=== PATIENT | female | born 1945 | race Caucasian/White ===

== ENCOUNTER 2018-11-20 13:47 | Inpatient (IN) | payer MEDICARE, OTHER ==
[~2018-11-20] VITALS: Ht 152.4 cm; Wt 71.0 kg
[~2018-11-20 13:47] MED LIST: ACYC-202 PO; AMLO10TA4 PO; ASPI-611 PO; CHOL10002 PO; CLOP75TA4 PO; CYCL-1 PO; FENO145T38 PO; GABA300C PO; HYDR-4353 PO; METO50TA17 PO; NITR0.4T51 SL; OMEP20TA23 PO; PRAV40TA PO; TRAZ-251 PO; VENL150C2 PO; VENL37.55 PO
[2018-11-20 14:33] LABS: BASOPHILS # (AUTO) 0.1 X10'3 (0-0.2); BASOPHILS % (AUTO) 1.2 % (0-1); EOSINOPHILS # (AUTO) 0.1 X10'3 (0-0.9); EOSINOPHILS % (AUTO) 1.1 % (0-6); HEMATOCRIT 38.1 % (35.0-45.0); HEMOGLOBIN 12.6 g/dl (12.0-16.0); LYMPHOCYTES # (AUTO) 2.4 X10'3 (1.1-4.8); LYMPHOCYTES % (AUTO) 23.3 % (21-51); MEAN CORPUSCULAR HEMOGLOBIN 28.3 PG (27.0-31.0); MEAN CORPUSCULAR HGB CONC 33.1 g/dL (33.0-36.5); MEAN CORPUSCULAR VOLUME 85.5 FL (78-98); MEAN PLATELET VOLUME 7.7 FL (7.4-10.4); MONOCYTES # (AUTO) 0.5 X10'3 (0-0.9); MONOCYTES % (AUTO) 5.1 % (2-12); NEUTROPHILS # (AUTO) 7.2 X10'3 (1.8-7.7); NEUTROPHILS % (AUTO) 69.3 % (42-75); PLATELET COUNT 315 X10'3 (140-440); RED BLOOD COUNT 4.46 X10'6 (4.20-5.60); RED CELL DISTRIBUTION WIDTH 14.8 % (11.5-14.5); WHITE BLOOD COUNT 10.4 X10'3 (4.5-11.0)
[2018-11-20 14:49] LABS: ALANINE AMINOTRANSFERASE 30 U/L (12-78); ALBUMIN 3.2 G/DL (3.4-5.0); ALBUMIN/GLOBULIN RATIO 0.9 (1.1-1.5); ALKALINE PHOSPHATASE 111 IU/L (46-116); ANION GAP 8 (8-16); ASPARTATE AMINO TRANSFERASE 19 U/L (10-37); BILIRUBIN,TOTAL 0.4 MG/DL (0.1-1.0); BLOOD UREA NITROGEN 16 MG/DL (7-18); BUN/CREATININE RATIO 21.1 (6.6-38.0); CALCIUM 9.3 MG/DL (8.5-10.1); CHLORIDE 104 MMOL/L (99-107); CREATININE 0.76 MG/DL (0.40-0.90); GLUCOSE 113 MG/DL (70-104); POTASSIUM 3.9 MMOL/L (3.5-5.1); SODIUM 138 MMOL/L (135-145); TOTAL CARBON DIOXIDE 26.5 MMOL/L (24-32); TOTAL PROTEIN 6.9 G/DL (6.4-8.2); eGFR 75 ML/MIN
[2018-11-20] MEDS ORDERED: mag hydrox/Alum hydrox/simeth 30ml oral suspension PO PRN (15:30)
[2018-11-20] MEDS ORDERED: ondansetron/PF 4mg/2ml inj IV PRN (15:30)
[2018-11-20] MEDS ORDERED: furosemide 10 MG/1 ML 10ml inj IV ONE ×2 (15:30→15:35)
[2018-11-20] MEDS ORDERED: magnesium hydroxide 30ml (MOM) UD suspension PO PRN (15:30)
[2018-11-20] MEDS ORDERED: aspirin 81mg tab.chew PO ONE ×2 (15:30→15:35)
[2018-11-20] MEDS ORDERED: ISOS30TA6 PO (18:15)
[2018-11-20] MEDS ORDERED: EFF25T PO ×2 (18:15)
[2018-11-20] MEDS ORDERED: DIPH25CA83 PO (18:15)
[2018-11-20] MEDS ORDERED: LEVO50TA8 PO (18:15)
[2018-11-20] MEDS ORDERED: FOLI1TAB16 PO (18:15)
[2018-11-20] MEDS ORDERED: LOSA50TA64 PO (18:15)
[2018-11-20] MEDS ORDERED: TRAZ-251 PO (18:15)
[2018-11-20] MEDS ORDERED: nitroGLYCERIN 0.4mg SUBLingual tab SL PRN (18:20)
[2018-11-20] MEDS ORDERED: HYDROcodone/acetaminophen 10/325mg tab PO PRN (18:20)
--- NOTE | 2018-11-20 18:43 | NUR ---
Patient in room PCU 3012. I have received report from Shanit HANSEN and had the opportunity to ask questions and assume patient care.
[2018-11-20 19:00] VITALS: BP 135/67
[2018-11-20] MEDS: furosemide 10 MG/1 ML 10ml inj IV SCH (21:27)
[2018-11-20] MEDS: metoprolol tartrate 50mg tablet PO SCH (21:27)
[2018-11-20] MEDS: gabapentin 300mg capsule PO SCH (21:28)
[2018-11-20] MEDS: traZODone 50mg tablet PO SCH (21:28)
[2018-11-20] MEDS: heparin, porcine 5000 units/ml vial SQ SCH (21:30)
[2018-11-20] MEDS: venlafaxine 25mg tablet PO SCH (21:31)
[2018-11-20 23:00] VITALS: BP 105/61
[2018-11-21 03:00] VITALS: BP 126/84
[2018-11-21 03:36] LABS: BASOPHILS # (AUTO) 0.1 X10'3 (0-0.2); EOSINOPHILS # (AUTO) 0.1 X10'3 (0-0.9); EOSINOPHILS % (AUTO) 1.2 % (0-6); HEMATOCRIT 37.4 % (35.0-45.0); HEMOGLOBIN 12.5 g/dl (12.0-16.0); LYMPHOCYTES # (AUTO) 2.6 X10'3 (1.1-4.8); LYMPHOCYTES % (AUTO) 29.2 % (21-51); MEAN CORPUSCULAR HEMOGLOBIN 28.5 PG (27.0-31.0); MEAN CORPUSCULAR HGB CONC 33.4 g/dL (33.0-36.5); MEAN CORPUSCULAR VOLUME 85.5 FL (78-98); MONOCYTES # (AUTO) 0.4 X10'3 (0-0.9); MONOCYTES % (AUTO) 4.9 % (2-12); NEUTROPHILS # (AUTO) 5.6 X10'3 (1.8-7.7); NEUTROPHILS % (AUTO) 63.7 % (42-75); PLATELET COUNT 310 X10'3 (140-440); RED BLOOD COUNT 4.37 X10'6 (4.20-5.60); RED CELL DISTRIBUTION WIDTH 14.8 % (11.5-14.5); WHITE BLOOD COUNT 8.8 X10'3 (4.5-11.0)
[2018-11-21 03:47] LABS: ALBUMIN 3.2 G/DL (3.4-5.0); ANION GAP 10 (8-16); BLOOD UREA NITROGEN 20 MG/DL (7-18); BUN/CREATININE RATIO 25.3 (6.6-38.0); CALCIUM 8.5 MG/DL (8.5-10.1); CHLORIDE 103 MMOL/L (99-107); CREATININE 0.79 MG/DL (0.40-0.90); GLUCOSE 111 MG/DL (70-104); POTASSIUM 3.2 MMOL/L (3.5-5.1); SODIUM 140 MMOL/L (135-145); TOTAL CARBON DIOXIDE 27.3 MMOL/L (24-32); eGFR 72 ML/MIN
--- NOTE | 2018-11-21 04:36 | NUR ---
Called Dr. fitch for k protocol placement, K is 3.2, will start replacing
[2018-11-21] MEDS ORDERED: potassium Cl 20 mEq SR tablet PO PRN (04:40)
[2018-11-21] MEDS ORDERED: potassium CL 10mEq/100ml bag 100 ML IV PRN (04:40)
[2018-11-21] MEDS: potassium Cl 20 mEq SR tablet PO PRN ×4 (05:48→21:02)
[2018-11-21] MEDS: acetaminophen 325mg tablet PO PRN ×2 (05:49→21:19)
[2018-11-21 06:00] VITALS: BP 130/75
--- NOTE | 2018-11-21 06:15 | NUR ---
Problems reprioritized. Patient report given, questions answered & plan of care reviewed with Susie Harvey.
[2018-11-21] MEDS: aspirin 81mg tablet.DR PO SCH (09:08)
[2018-11-21] MEDS: heparin, porcine 5000 units/ml vial SQ SCH ×2 (09:08→21:02)
[2018-11-21] MEDS: clopidogrel 75mg tablet PO SCH (09:09)
[2018-11-21] MEDS: atorvastatin 10mg tablet PO SCH (09:09)
[2018-11-21] MEDS: folic acid 1mg tablet PO SCH (09:09)
[2018-11-21] MEDS: pantoprazole 40mg Tablet.DR PO SCH (09:09)
[2018-11-21] MEDS: isosorbide mononitrate 30mg tab.SR.24H PO SCH (09:09)
[2018-11-21] MEDS: gabapentin 300mg capsule PO SCH ×2 (09:10→21:02)
[2018-11-21] MEDS: venlafaxine 25mg tablet PO SCH ×2 (09:10→21:20)
[2018-11-21] MEDS: vitamin D (cholecalciferol) 1,000 unit tablet PO SCH (09:10)
[2018-11-21] MEDS: metoprolol tartrate 50mg tablet PO SCH ×2 (09:11→21:03)
[2018-11-21] MEDS: losartan 50mg tablet PO SCH (09:11)
[2018-11-21] MEDS: fenofibrate 145mg tablet PO SCH (09:11)
[2018-11-21] MEDS: furosemide 10 MG/1 ML 10ml inj IV SCH ×2 (09:13→21:01)
[2018-11-21] MEDS ORDERED: FLU VACC QS2019-20 36MOS UP/PF 60 MCG/0.5 ML SYRINGE IMVAC ONE (10:00)
[2018-11-21 11:00] VITALS: BP 121/75
--- NOTE | 2018-11-21 11:38 | NUR ---
Malnutrition consult: Pt admit referred for symptomatic L chest thoracentesis; not indicated per MD note. Pt PO 75-100% first meal meeting needs so far. No edema/wounds, no weakness noted. Current wt pt stated and no significant wt loss hx present. At this time pt does not meet malnutrition criteria. Addendum: 11/21/18 at [address] Amended: Links added.
[2018-11-21] MEDS: levoTHYROXINE 25mcg tablet PO SCH (12:04)
--- NOTE | 2018-11-21 13:59 | NUR ---
Beatrice Yanez Rm [id number] c/o anxiety, nervous, has had panic attack in history. requesting an axiolytic TYRONE Richards ext [phone] *Note to Sylvester
[2018-11-21] MEDS: LORazepam 0.5 MG tablet PO PRN (14:26)
[2018-11-21 18:00] VITALS: BP 137/91
--- NOTE | 2018-11-21 18:00 | NUR ---
Problems reprioritized. Patient report given, questions answered & plan of care reviewed with TYRONE Nunn.
--- NOTE | 2018-11-21 18:00 | NUR ---
Patient in room PCU 3012. I have received report from Susie HANSEN and had the opportunity to ask questions and assume patient care.
[2018-11-21] MEDS: traZODone 50mg tablet PO SCH (21:02)
[2018-11-21 22:00] VITALS: BP 115/67
[2018-11-22 02:00] VITALS: BP 118/99
[2018-11-22 05:22] LABS: BASOPHILS # (AUTO) 0.1 X10'3 (0-0.2); BASOPHILS % (AUTO) 0.8 % (0-1); EOSINOPHILS # (AUTO) 0.2 X10'3 (0-0.9); EOSINOPHILS % (AUTO) 2.2 % (0-6); HEMATOCRIT 38.9 % (35.0-45.0); LYMPHOCYTES # (AUTO) 2.9 X10'3 (1.1-4.8); LYMPHOCYTES % (AUTO) 38.6 % (21-51); MEAN CORPUSCULAR HEMOGLOBIN 28.2 PG (27.0-31.0); MEAN CORPUSCULAR HGB CONC 33.4 g/dL (33.0-36.5); MEAN CORPUSCULAR VOLUME 84.5 FL (78-98); MEAN PLATELET VOLUME 7.8 FL (7.4-10.4); MONOCYTES # (AUTO) 0.6 X10'3 (0-0.9); MONOCYTES % (AUTO) 8.1 % (2-12); NEUTROPHILS # (AUTO) 3.7 X10'3 (1.8-7.7); NEUTROPHILS % (AUTO) 50.3 % (42-75); PLATELET COUNT 300 X10'3 (140-440); RED BLOOD COUNT 4.61 X10'6 (4.20-5.60); RED CELL DISTRIBUTION WIDTH 14.8 % (11.5-14.5); WHITE BLOOD COUNT 7.4 X10'3 (4.5-11.0)
--- NOTE | 2018-11-22 05:29 | NUR ---
Patient slept well tonight. Able to ambulate independently to the bathroom. Mild anxiety towards the possibility of having PE. Will continue to monitor.
[2018-11-22 05:36] LABS: ALBUMIN 3.2 G/DL (3.4-5.0); ANION GAP 8 (8-16); BLOOD UREA NITROGEN 20 MG/DL (7-18); BUN/CREATININE RATIO 23.3 (6.6-38.0); CALCIUM 9.1 MG/DL (8.5-10.1); CHLORIDE 105 MMOL/L (99-107); CREATININE 0.86 MG/DL (0.40-0.90); GLUCOSE 109 MG/DL (70-104); POTASSIUM 4.1 MMOL/L (3.5-5.1); SODIUM 141 MMOL/L (135-145); eGFR 65 ML/MIN
--- NOTE | 2018-11-22 05:57 | NUR ---
Medication Reconciliation Needs to be done. Unable this shift, patient wanted to sleep.
[2018-11-22 06:00] VITALS: BP 108/66
--- NOTE | 2018-11-22 06:00 | NUR ---
Patient in room PCU 3012. I have received report from Arline HANSEN and had the opportunity to ask questions and assume patient care.
--- NOTE | 2018-11-22 06:31 | NUR ---
Problems reprioritized. Patient report given, questions answered & plan of care reviewed with Tessa RN.
[2018-11-22] MEDS: levoTHYROXINE 25mcg tablet PO SCH (08:13)
[2018-11-22] MEDS: vitamin D (cholecalciferol) 1,000 unit tablet PO SCH (09:11)
[2018-11-22] MEDS: gabapentin 300mg capsule PO SCH ×2 (09:11→19:41)
[2018-11-22] MEDS: fenofibrate 145mg tablet PO SCH (09:11)
[2018-11-22] MEDS: isosorbide mononitrate 30mg tab.SR.24H PO SCH (09:12)
[2018-11-22] MEDS: aspirin 81mg tablet.DR PO SCH (09:12)
[2018-11-22] MEDS: losartan 50mg tablet PO SCH (09:12)
[2018-11-22] MEDS: folic acid 1mg tablet PO SCH (09:12)
[2018-11-22] MEDS: clopidogrel 75mg tablet PO SCH (09:13)
[2018-11-22] MEDS: atorvastatin 10mg tablet PO SCH (09:13)
[2018-11-22] MEDS: pantoprazole 40mg Tablet.DR PO SCH (09:13)
[2018-11-22] MEDS: venlafaxine 25mg tablet PO SCH ×2 (09:14→19:58)
[2018-11-22] MEDS: metoprolol tartrate 50mg tablet PO SCH ×2 (09:14→19:40)
[2018-11-22] MEDS: heparin, porcine 5000 units/ml vial SQ SCH ×2 (09:15→19:37)
[2018-11-22] MEDS: furosemide 10 MG/1 ML 10ml inj IV SCH ×2 (09:17→19:36)
[2018-11-22 11:00] VITALS: BP 124/68
[2018-11-22] MEDS: LORazepam 0.5 MG tablet PO PRN ×2 (14:57→21:54)
[2018-11-22 15:00] VITALS: BP 116/57
[2018-11-22 18:00] VITALS: BP 133/84
--- NOTE | 2018-11-22 18:00 | NUR ---
Problems reprioritized. Patient report given, questions answered & plan of care reviewed with Arline HANSEN.
--- NOTE | 2018-11-22 18:00 | NUR ---
Patient in room PCU 3012. I have received report from RADHA HANSEN and had the opportunity to ask questions and assume patient care.
[2018-11-22] MEDS: traZODone 50mg tablet PO SCH (19:57)
[2018-11-22] MEDS: acetaminophen 325mg tablet PO PRN (21:55)
[2018-11-22 22:00] VITALS: BP 110/67
--- NOTE | 2018-11-22 22:00 | NUR ---
ATIVAN Patient would like to talk to the doctor in the AM about getting a prescription of Ativan for home. Patient has been researching diagnosis online and would not like more education at this time. Will continue to monitor.
[2018-11-23 02:00] VITALS: BP 143/85
[2018-11-23 05:46] LABS: BASOPHILS # (AUTO) 0.1 X10'3 (0-0.2); BASOPHILS % (AUTO) 0.9 % (0-1); EOSINOPHILS # (AUTO) 0.1 X10'3 (0-0.9); EOSINOPHILS % (AUTO) 1.9 % (0-6); HEMATOCRIT 39.1 % (35.0-45.0); HEMOGLOBIN 13.2 g/dl (12.0-16.0); LYMPHOCYTES # (AUTO) 2.5 X10'3 (1.1-4.8); LYMPHOCYTES % (AUTO) 34.1 % (21-51); MEAN CORPUSCULAR HEMOGLOBIN 28.8 PG (27.0-31.0); MEAN CORPUSCULAR HGB CONC 33.7 g/dL (33.0-36.5); MEAN CORPUSCULAR VOLUME 85.3 FL (78-98); MEAN PLATELET VOLUME 7.8 FL (7.4-10.4); MONOCYTES # (AUTO) 0.6 X10'3 (0-0.9); MONOCYTES % (AUTO) 8.8 % (2-12); NEUTROPHILS # (AUTO) 3.9 X10'3 (1.8-7.7); NEUTROPHILS % (AUTO) 54.3 % (42-75); PLATELET COUNT 297 X10'3 (140-440); RED BLOOD COUNT 4.59 X10'6 (4.20-5.60); RED CELL DISTRIBUTION WIDTH 14.6 % (11.5-14.5); WHITE BLOOD COUNT 7.2 X10'3 (4.5-11.0)
[2018-11-23 05:58] LABS: ALBUMIN 3.3 G/DL (3.4-5.0); ANION GAP 10 (8-16); BLOOD UREA NITROGEN 21 MG/DL (7-18); BUN/CREATININE RATIO 27.6 (6.6-38.0); CALCIUM 9.9 MG/DL (8.5-10.1); CHLORIDE 103 MMOL/L (99-107); CREATININE 0.76 MG/DL (0.40-0.90); GLUCOSE 104 MG/DL (70-104); POTASSIUM 3.7 MMOL/L (3.5-5.1); SODIUM 140 MMOL/L (135-145); TOTAL CARBON DIOXIDE 27.4 MMOL/L (24-32); eGFR 75 ML/MIN
[2018-11-23 06:00] VITALS: BP 123/49
--- NOTE | 2018-11-23 06:15 | NUR ---
Patient in room PCU 3012. I have received report from Arline and had the opportunity to ask questions and assume patient care.
--- NOTE | 2018-11-23 06:43 | NUR ---
Problems reprioritized. Patient report given, questions answered & plan of care reviewed with Dee HANSEN.
[2018-11-23] MEDS: levoTHYROXINE 25mcg tablet PO SCH (07:54)
[2018-11-23] MEDS: losartan 50mg tablet PO SCH (07:54)
[2018-11-23] MEDS: furosemide 10 MG/1 ML 10ml inj IV SCH (07:54)
[2018-11-23] MEDS: aspirin 81mg tablet.DR PO SCH (07:55)
[2018-11-23] MEDS: metoprolol tartrate 50mg tablet PO SCH (07:56)
[2018-11-23] MEDS: fenofibrate 145mg tablet PO SCH (07:56)
[2018-11-23] MEDS: clopidogrel 75mg tablet PO SCH (07:56)
[2018-11-23] MEDS: pantoprazole 40mg Tablet.DR PO SCH (07:56)
[2018-11-23] MEDS: atorvastatin 10mg tablet PO SCH (07:56)
[2018-11-23] MEDS: isosorbide mononitrate 30mg tab.SR.24H PO SCH (07:56)
[2018-11-23] MEDS: gabapentin 300mg capsule PO SCH (07:56)
[2018-11-23] MEDS: folic acid 1mg tablet PO SCH (07:56)
[2018-11-23] MEDS: vitamin D (cholecalciferol) 1,000 unit tablet PO SCH (07:57)
[2018-11-23] MEDS: heparin, porcine 5000 units/ml vial SQ SCH (07:57)
[2018-11-23] MEDS: venlafaxine 25mg tablet PO SCH (08:08)
[2018-11-23 10:00] VITALS: BP 108/58
[2018-11-23] MEDS ORDERED: FURO-149 PO (10:38)
[2018-11-23] MEDS ORDERED: POTA20TA19 PO (10:38)
[2018-11-23] MEDS: LORazepam 0.5 MG tablet PO PRN (10:55)
--- NOTE | 2018-11-23 10:58 | NUR ---
Discharge order in, pt waiting for son to pick her up, approximately noon
--- NOTE | 2018-11-23 11:05 | NUR ---
Phoned pt's PCP [facility] and left message that patient will need follow-up within one week of today's discharge and to please call patient to set up appointment. [facility] [place] to [facility] [place] per pt request.
--- NOTE | 2018-11-23 15:05 | NUR ---
Reviewed discharge instructions with pt. Pt verbalized understanding. Pt is alert, oriented and does not have c/o discomfort at this time. Pt was accompanied downstairs by staff and family. Family will drive her home. Rx was called in to [facility].
== END 2018-11-23 15:15 | disposition home health service (06) | DRG 280 ==
LOC: ER 13:47 → ED HOLD 15:29 → PCU 3S 18:44
PROVIDERS: ADMIT Family Medicine; ATTEND Family Medicine
DX: I21.A1 Myocardial infarction type 2 (principal); I50.23 Acute on chronic systolic (congestive) heart failure; J91.8 Pleural effusion in other conditions classified elsewhere; E78.5 Hyperlipidemia, unspecified; E03.9 Hypothyroidism, unspecified; F17.200 Nicotine dependence, unspecified, uncomplicated; F32.9 Major depressive disorder, single episode, unspecified; I11.0 Hypertensive heart disease with heart failure; I25.10 Atherosclerotic heart disease of native coronary artery without angina pectoris; I71.4 Abdominal aortic aneurysm, without rupture; K21.9 Gastro-esophageal reflux disease without esophagitis; E87.6 Hypokalemia; I08.2 Rheumatic disorders of both aortic and tricuspid valves; I73.9 Peripheral vascular disease, unspecified; Z88.2 Allergy status to sulfonamides; Z88.8 Allergy status to other drugs, medicaments and biological substances; Z88.6 Allergy status to analgesic agent; Z91.040 Latex allergy status; Z23 Encounter for immunization; Z79.899 Other long term (current) drug therapy; Z79.82 Long term (current) use of aspirin; Z79.890 Hormone replacement therapy; Z95.5 Presence of coronary angioplasty implant and graft; Z95.1 Presence of aortocoronary bypass graft; Z82.0 Family history of epilepsy and other diseases of the nervous system; Z90.710 Acquired absence of both cervix and uterus; Z90.722 Acquired absence of ovaries, bilateral; Z90.49 Acquired absence of other specified parts of digestive tract; Z95.820 Peripheral vascular angioplasty status with implants and grafts
CPT/HCPCS: 36415; 71046; 80048; 80053; 83880; 84443; 84484; 85025; 87081; 93005; 93306; 99285; G0378; J1644; J1940; Q2037

== ENCOUNTER 2018-12-08 07:40 | Inpatient (IN) | payer MEDICARE, OTHER ==
[~2018-12-08] VITALS: Ht 152.4 cm; Wt 73.5 kg
[~2018-12-08 07:40] MED LIST changes: -AMLO10TA4 PO; -CYCL-1 PO; +DIPH25CA83 PO; +EFF25T PO; +FOLI1TAB16 PO; +FURO-149 PO; +ISOS30TA6 PO; +LEVO50TA8 PO; +LOSA50TA64 PO; +POTA20TA19 PO; -VENL150C2 PO; -VENL37.55 PO
[2018-12-08] MEDS ORDERED: nitroGLYCERIN-Tridil 50MG/D5W 250 ML IV PRN (07:46)
[2018-12-08] MEDS ORDERED: furosemide 10 MG/1 ML 10ml inj IV ONE (07:50)
[2018-12-08] MEDS ORDERED: ALB0.5UD IH (08:02)
[2018-12-08] MEDS ORDERED: BUDE10.2 INH (08:02)
[2018-12-08 08:03] LABS: BASOPHILS # (AUTO) 0.2 X10'3 (0-0.2); BASOPHILS % (AUTO) 1.3 % (0-1); EOSINOPHILS # (AUTO) 0.3 X10'3 (0-0.9); EOSINOPHILS % (AUTO) 1.8 % (0-6); HEMATOCRIT 45.5 % (35.0-45.0); HEMOGLOBIN 14.9 g/dl (12.0-16.0); LYMPHOCYTES # (AUTO) 6.4 X10'3 (1.1-4.8); LYMPHOCYTES % (AUTO) 44.1 % (21-51); MEAN CORPUSCULAR HGB CONC 32.8 g/dL (33.0-36.5); MEAN CORPUSCULAR VOLUME 88.4 FL (78-98); MEAN PLATELET VOLUME 8.3 FL (7.4-10.4); MONOCYTES # (AUTO) 0.7 X10'3 (0-0.9); MONOCYTES % (AUTO) 4.7 % (2-12); NEUTROPHILS % (AUTO) 48.1 % (42-75); PLATELET COUNT 262 X10'3 (140-440); RED BLOOD COUNT 5.15 X10'6 (4.20-5.60); RED CELL DISTRIBUTION WIDTH 15.5 % (11.5-14.5); WHITE BLOOD COUNT 14.6 X10'3 (4.5-11.0)
[2018-12-08 08:05] LABS: ABG BASE EXCESS -16.3 mmol/L (-2.0-3.0); ABG HCO3 11.4 mmol/L (22.0-26.0); ABG OXYGEN SATURATION 98.6 % (95-98); ABG PCO2 (T) 33.4 mmHg (35.0-45.0); ABG PH (T) 7.151 (7.350-7.450); ABG PO2 (T) 172.1 mmHg (83-108); ALLEN'S TEST Positive; FCOHb 0.9 % (0.5-1.5); FO2Hb 97.7 % (94-100); MINUTE VOLUME 25 L/min; RESPIRATORY RATE 20 b/min; RESPIRATORY RATE (OBSERVED) 43 b/min; TIDAL VOLUME 577 mL; TOTAL HEMOGLOBIN 14.1 G/dl (12.0-16.0)
--- NOTE | 2018-12-08 08:07 | NUR ---
When asked if she is breathing better. Patient states, "I feel better, thank you."
[2018-12-08 08:18] LABS: PARTIAL THROMBOPLASTIN TIME 26 SECONDS (22-32)
--- NOTE | 2018-12-08 08:21 | NUR ---
Spoke with Dr. Mills he ordered to increase dose of nitroglycerin to 20 mcg/min. Pump rate changed and documented in interventions.
[2018-12-08 08:22] LABS: ALBUMIN 3.5 G/DL (3.4-5.0); ALKALINE PHOSPHATASE 125 IU/L (46-116); ANION GAP 16 (8-16); BILIRUBIN,TOTAL 0.4 MG/DL (0.1-1.0); BLOOD UREA NITROGEN 16 MG/DL (7-18); BUN/CREATININE RATIO 16.5 (6.6-38.0); CHLORIDE 101 MMOL/L (99-107); CREATININE 0.97 MG/DL (0.40-0.90); POTASSIUM 4.5 MMOL/L (3.5-5.1); SODIUM 136 MMOL/L (135-145); TOTAL CARBON DIOXIDE 18.7 MMOL/L (24-32); eGFR 56 ML/MIN
[2018-12-08 08:23] LABS: GLUCOSE 255 MG/DL (70-104)
[2018-12-08 08:33] LABS: ALBUMIN/GLOBULIN RATIO 0.8 (1.1-1.5); CALCIUM 9.1 MG/DL (8.5-10.1); TOTAL PROTEIN 7.9 G/DL (6.4-8.2)
[2018-12-08 08:42] LABS: ASPARTATE AMINO TRANSFERASE 24 U/L (10-37)
[2018-12-08 08:59] LABS: ALANINE AMINOTRANSFERASE 22 U/L (12-78)
[2018-12-08] MEDS ORDERED: bisacodyl 10mg suppository rectal RC PRN (09:00)
[2018-12-08] MEDS ORDERED: potassium Cl 20 mEq SR tablet PO PRN ×2 (09:00)
[2018-12-08] MEDS ORDERED: acetaminophen 325mg tablet PO PRN (09:00)
[2018-12-08] MEDS ORDERED: magnesium Cl slow-release 64mg tablet PO PRN (09:00)
[2018-12-08] MEDS ORDERED: magnesium 2GM in 50ml NS 50 ML IV PRN (09:00)
[2018-12-08] MEDS ORDERED: potassium CL 10mEq/100ml bag 100 ML IV PRN ×2 (09:00)
[2018-12-08] MEDS ORDERED: magnesium 4gm in 100ml NS 100 ML IV PRN (09:00)
[2018-12-08] MEDS ORDERED: ondansetron/PF 4mg/2ml inj IV PRN (09:00)
[2018-12-08] MEDS ORDERED: mag hydrox/Alum hydrox/simeth 30ml oral suspension PO PRN (09:00)
[2018-12-08] MEDS ORDERED: nitroGLYCERIN 0.4mg SUBLingual tab SL PRN ×3 (09:00→19:05)
[2018-12-08] MEDS ORDERED: magnesium hydroxide 30ml (MOM) UD suspension PO PRN (09:00)
--- NOTE | 2018-12-08 09:09 | NUR ---
Notified MD of low SBP on Nitro 20mcg/min. Order received to keep dose at 5mcg/min.
--- NOTE | 2018-12-08 10:00 | NUR ---
Patient in room ED 5. I have received report from Ryan HANSEN and had the opportunity to ask questions and assume patient care.
--- NOTE | 2018-12-08 10:25 | NUR ---
Received patient from ED. Vital signs taken and stable. telemetry monitor placed and alarms audible. Patient oriented to room and call light.
[2018-12-08 10:47] VITALS: BP 106/70
--- NOTE | 2018-12-08 14:27 | NUR ---
Page Dr. Beltran PAGER ID: [phone] MESSAGE: Room 3016B Beatrice Yanez: Could you give me a call when you get a moment, I have a couple questions regarding patient. Thank you, Zaria ext [phone].
--- NOTE | 2018-12-08 14:55 | NUR ---
Page Dr. eBltran PAGER ID: [phone] MESSAGE: Room 3016B Beatrice Yanez: Patient's 6hr Troponin is 0.55, up from 0.40. Thank you, Zaria ext [phone].
[2018-12-08 15:00] VITALS: BP 101/67
[2018-12-08] MEDS ORDERED: VENL100T4 PO (15:51)
--- NOTE | 2018-12-08 17:20 | NUR ---
Page sent to Dr. Beltran: PAGER ID: [phone] MESSAGE: [id number] Renata: Patient needs something for anxiety, please address home med list KARINA. Thanks, Melita [phone]
--- NOTE | 2018-12-08 18:01 | NUR ---
PAGER ID: [phone] MESSAGE: [id number] Beatrice Yanez: Patient states shes going to have a panic attack if she doesn't take the 5mg Ativan that she takes at home. Patient in tears. Please help KARINA. Thanks, Melita [phone]
[2018-12-08] MEDS ORDERED: LORazepam 1 MG tablet PO PRN (18:30)
--- NOTE | 2018-12-08 18:32 | NUR ---
[place] documentation: I have reviewed and agree with all interventions, assessments performed and documented by Zaria HANSEN. [place] Medication Administration: For this medication-pass time frame, all medication were reviewed, dispensed, administered and documented per hospital policy by Zaria HANSEN.
--- NOTE | 2018-12-08 18:36 | NUR ---
Problems reprioritized. Patient report given, questions answered & plan of care reviewed with Carlitos HANSEN. Patient stable at transfer of care.
--- NOTE | 2018-12-08 18:42 | NUR ---
Patient in room PCU 3016. I have received report from TYRONE Hua and had the opportunity to ask questions and assume patient care.
[2018-12-08] MEDS ORDERED: diphenhydrAMINE 25mg capsule PO PRN ×2 (18:55→19:05)
[2018-12-08] MEDS ORDERED: non-formulary drug (Albuterol Sulfate Nebs* (Proventil Nebs*) 2.5 MG) IH PRN (18:55)
[2018-12-08] MEDS ORDERED: albuterol 2.5 MG/3 ML nebule NEB PRN (19:30)
[2018-12-08] MEDS: LORazepam 1 MG tablet PO PRN (19:35)
[2018-12-08] MEDS ORDERED: metoprolol tartrate 50mg tablet PO SCH (20:00)
[2018-12-08] MEDS ORDERED: gabapentin 300mg capsule PO SCH (20:00)
[2018-12-08] MEDS: traZODone 50mg tablet PO SCH (20:22)
[2018-12-08] MEDS: metoprolol tartrate 50mg tablet PO SCH (20:23)
[2018-12-08] MEDS: furosemide 40mg/4ml inj IV SCH (20:24)
[2018-12-08] MEDS: gabapentin 300mg capsule PO SCH (20:24)
[2018-12-08] MEDS: venlafaxine 25mg tablet PO SCH (20:49)
[2018-12-08] MEDS ORDERED: traZODone 50mg tablet PO SCH (21:00)
[2018-12-08 22:53] VITALS: BP 113/66
--- NOTE | 2018-12-08 23:00 | NUR ---
Hospitalist was made aware that the 12hr Troponin was 0.57 it was previously 0.55.
[2018-12-09] VITALS (7 sets, daily range): BP systolic 95–128; BP diastolic 55–85
[2018-12-09 06:11] LABS: BASOPHILS # (AUTO) 0.1 X10'3 (0-0.2); BASOPHILS % (AUTO) 0.7 % (0-1); EOSINOPHILS # (AUTO) 0.1 X10'3 (0-0.9); EOSINOPHILS % (AUTO) 1.4 % (0-6); HEMOGLOBIN 13.4 g/dl (12.0-16.0); LYMPHOCYTES # (AUTO) 2.9 X10'3 (1.1-4.8); LYMPHOCYTES % (AUTO) 33.3 % (21-51); MEAN CORPUSCULAR HEMOGLOBIN 28.4 PG (27.0-31.0); MEAN CORPUSCULAR HGB CONC 33.4 g/dL (33.0-36.5); MEAN CORPUSCULAR VOLUME 85.1 FL (78-98); MEAN PLATELET VOLUME 8.2 FL (7.4-10.4); MONOCYTES # (AUTO) 0.4 X10'3 (0-0.9); MONOCYTES % (AUTO) 5.1 % (2-12); NEUTROPHILS # (AUTO) 5.2 X10'3 (1.8-7.7); NEUTROPHILS % (AUTO) 59.5 % (42-75); PLATELET COUNT 183 X10'3 (140-440); RED CELL DISTRIBUTION WIDTH 15.5 % (11.5-14.5); WHITE BLOOD COUNT 8.7 X10'3 (4.5-11.0)
--- NOTE | 2018-12-09 06:15 | NUR ---
Patient in room PCU 3016. I have received report from and had the opportunity to ask questions and assume patient care TYRONE Dee.
[2018-12-09 06:29] LABS: ALBUMIN 3.4 G/DL (3.4-5.0); ANION GAP 12 (8-16); BLOOD UREA NITROGEN 14 MG/DL (7-18); BUN/CREATININE RATIO 18.9 (6.6-38.0); CALCIUM 8.5 MG/DL (8.5-10.1); CHLORIDE 104 MMOL/L (99-107); CREATININE 0.74 MG/DL (0.40-0.90); GLUCOSE 116 MG/DL (70-104); MAGNESIUM 1.8 MG/DL (1.5-2.4); POTASSIUM 3.5 MMOL/L (3.5-5.1); SODIUM 140 MMOL/L (135-145); TOTAL CARBON DIOXIDE 24.2 MMOL/L (24-32); eGFR 77 ML/MIN
--- NOTE | 2018-12-09 06:34 | NUR ---
Problems reprioritized. Patient report given, questions answered & plan of care reviewed with TYRONE Rivera.
[2018-12-09] MEDS ORDERED: pravastatin 40mg tablet PO SCH (08:00)
[2018-12-09] MEDS: K and/or MAG REPLACEMENT MC SCH (08:00)
[2018-12-09] MEDS ORDERED: non-formulary drug (Aspirin (Aspir 81) 1 TAB) PO SCH (08:00)
[2018-12-09] MEDS ORDERED: folic acid 1mg tablet PO SCH (08:00)
[2018-12-09] MEDS ORDERED: non-formulary drug (Cholecalciferol (Vitamin D3) (Vitamin D3) 2 TAB) PO SCH (08:00)
[2018-12-09] MEDS ORDERED: isosorbide mononitrate 30mg tab.SR.24H PO SCH (08:00)
[2018-12-09] MEDS ORDERED: clopidogrel 75mg tablet PO SCH (08:00)
[2018-12-09] MEDS ORDERED: fenofibrate 145mg tablet PO SCH (08:00)
[2018-12-09] MEDS ORDERED: non-formulary drug (Levothyroxine Sodium 1 TAB) PO SCH (08:00)
[2018-12-09] MEDS ORDERED: losartan 50mg tablet PO SCH (08:00)
[2018-12-09] MEDS: fenofibrate 145mg tablet PO SCH (08:49)
[2018-12-09] MEDS: levoTHYROXINE 25mcg tablet PO SCH (08:50)
[2018-12-09] MEDS: folic acid 1mg tablet PO SCH (08:51)
[2018-12-09] MEDS: pantoprazole 40mg Tablet.DR PO SCH (08:52)
[2018-12-09] MEDS: gabapentin 300mg capsule PO SCH ×2 (08:52→20:28)
[2018-12-09] MEDS: isosorbide mononitrate 30mg tab.SR.24H PO SCH (08:52)
[2018-12-09] MEDS: aspirin 81mg tablet.DR PO SCH (08:52)
[2018-12-09] MEDS: clopidogrel 75mg tablet PO SCH (08:52)
[2018-12-09] MEDS: pravastatin 40mg tablet PO SCH (08:53)
[2018-12-09] MEDS: venlafaxine 25mg tablet PO SCH ×4 (08:54→20:29)
[2018-12-09] MEDS: metoprolol tartrate 50mg tablet PO SCH ×2 (08:54→20:30)
[2018-12-09] MEDS: losartan 50mg tablet PO SCH (08:54)
[2018-12-09] MEDS: enoxaparin 40mg/0.4ml syringe SQ SCH (08:55)
[2018-12-09] MEDS: furosemide 40mg/4ml inj IV SCH ×2 (08:56→20:29)
[2018-12-09] MEDS: vitamin D (cholecalciferol) 1,000 unit tablet PO SCH (08:57)
--- NOTE | 2018-12-09 11:02 | NUR ---
paged Dr Paige: PAGER ID: [phone] MESSAGE: #[phone] Beatrice Yanez: EKG abnormalities. EKG results in pt chart. thank you, Nicole [phone]
--- NOTE | 2018-12-09 13:05 | NUR ---
Malnutrition consult: Pt admit w/ STEMI PO 75-100% first meals meeting needs. Wt hx changes prior admit 71kg pt stated on prior to 100kg ER this admit. Pt has normal strength, no edema/wounds, and good PO. Does not meet malnutrition criteria at this time. Will continue to monitor. Addendum: 12/09/18 at [address] Amended: Links added.
[2018-12-09] MEDS ORDERED: ipratropium/albuterol 3ml nebule NEB PRN (17:10)
--- NOTE | 2018-12-09 18:30 | NUR ---
Patient in room PCU 3016. I have received report from Nicole HANSEN and had the opportunity to ask questions and assume patient care.
[2018-12-09] MEDS: acetaminophen 325mg tablet PO PRN (18:50)
[2018-12-09] MEDS: ipratropium/albuterol 3ml nebule NEB SCH ×2 (19:18→23:00)
[2018-12-09] MEDS: budesonide 0.5mg/2ml UD nebule IH SCH (19:18)
[2018-12-09] MEDS: traZODone 50mg tablet PO SCH (20:28)
[2018-12-10 03:00] VITALS: BP 127/77
[2018-12-10] MEDS: ipratropium/albuterol 3ml nebule NEB SCH ×6 (03:00→23:00)
[2018-12-10 05:47] LABS: BASOPHILS # (AUTO) 0.1 X10'3 (0-0.2); BASOPHILS % (AUTO) 0.8 % (0-1); EOSINOPHILS # (AUTO) 0.1 X10'3 (0-0.9); EOSINOPHILS % (AUTO) 1.6 % (0-6); HEMATOCRIT 39.9 % (35.0-45.0); HEMOGLOBIN 13.5 g/dl (12.0-16.0); LYMPHOCYTES # (AUTO) 2.4 X10'3 (1.1-4.8); LYMPHOCYTES % (AUTO) 32.9 % (21-51); MEAN CORPUSCULAR HEMOGLOBIN 28.7 PG (27.0-31.0); MEAN CORPUSCULAR HGB CONC 33.9 g/dL (33.0-36.5); MEAN CORPUSCULAR VOLUME 84.6 FL (78-98); MEAN PLATELET VOLUME 8.2 FL (7.4-10.4); MONOCYTES # (AUTO) 0.4 X10'3 (0-0.9); MONOCYTES % (AUTO) 5.4 % (2-12); NEUTROPHILS # (AUTO) 4.3 X10'3 (1.8-7.7); NEUTROPHILS % (AUTO) 59.3 % (42-75); PLATELET COUNT 176 X10'3 (140-440); RED BLOOD COUNT 4.71 X10'6 (4.20-5.60); RED CELL DISTRIBUTION WIDTH 15.1 % (11.5-14.5); WHITE BLOOD COUNT 7.3 X10'3 (4.5-11.0)
[2018-12-10 05:59] LABS: ALBUMIN 3.5 G/DL (3.4-5.0); ANION GAP 9 (8-16); BLOOD UREA NITROGEN 17 MG/DL (7-18); BUN/CREATININE RATIO 19.8 (6.6-38.0); CALCIUM 9.3 MG/DL (8.5-10.1); CHLORIDE 101 MMOL/L (99-107); CREATININE 0.86 MG/DL (0.40-0.90); GLUCOSE 115 MG/DL (70-104); MAGNESIUM 1.8 MG/DL (1.5-2.4); POTASSIUM 3.9 MMOL/L (3.5-5.1); SODIUM 137 MMOL/L (135-145); TOTAL CARBON DIOXIDE 26.6 MMOL/L (24-32); eGFR 65 ML/MIN
--- NOTE | 2018-12-10 06:21 | NUR ---
Problems reprioritized. Patient report given, questions answered & plan of care reviewed with Dariana HANSEN.
--- NOTE | 2018-12-10 06:28 | NUR ---
Patient in room PCU 3016. I have received report from Fina and had the opportunity to ask questions and assume patient care.
[2018-12-10] MEDS: acetaminophen 325mg tablet PO PRN ×2 (06:33→21:12)
[2018-12-10 07:00] VITALS: BP 127/75
[2018-12-10] MEDS: budesonide 0.5mg/2ml UD nebule IH SCH ×2 (07:29→19:17)
[2018-12-10] MEDS: folic acid 1mg tablet PO SCH (07:32)
[2018-12-10] MEDS: losartan 50mg tablet PO SCH (07:34)
[2018-12-10] MEDS: isosorbide mononitrate 30mg tab.SR.24H PO SCH (07:34)
[2018-12-10] MEDS: fenofibrate 145mg tablet PO SCH (07:34)
[2018-12-10] MEDS: levoTHYROXINE 25mcg tablet PO SCH (07:35)
[2018-12-10] MEDS: aspirin 81mg tablet.DR PO SCH (07:36)
[2018-12-10] MEDS: pantoprazole 40mg Tablet.DR PO SCH (07:36)
[2018-12-10] MEDS: pravastatin 40mg tablet PO SCH (07:36)
[2018-12-10] MEDS: clopidogrel 75mg tablet PO SCH (07:37)
[2018-12-10] MEDS: LORazepam 1 MG tablet PO PRN ×2 (07:37→15:29)
[2018-12-10] MEDS: gabapentin 300mg capsule PO SCH ×2 (07:37→20:58)
[2018-12-10] MEDS: venlafaxine 25mg tablet PO SCH ×4 (07:38→21:00)
[2018-12-10] MEDS: metoprolol tartrate 50mg tablet PO SCH ×2 (07:38→21:00)
[2018-12-10] MEDS: vitamin D (cholecalciferol) 1,000 unit tablet PO SCH (07:39)
[2018-12-10] MEDS: enoxaparin 40mg/0.4ml syringe SQ SCH (07:40)
[2018-12-10] MEDS: furosemide 40mg/4ml inj IV SCH ×2 (07:40→21:00)
[2018-12-10] MEDS: K and/or MAG REPLACEMENT MC SCH (07:42)
[2018-12-10] MEDS ORDERED: FLU VACC QS2019-20 36MOS UP/PF 60 MCG/0.5 ML SYRINGE IMVAC ONE (10:00)
[2018-12-10 10:20] LABS: TROPONIN I 0.19 NG/ML (0.0-0.05)
[2018-12-10 11:00] VITALS: BP 111/68
[2018-12-10 15:00] VITALS: BP 126/67
--- NOTE | 2018-12-10 18:33 | NUR ---
Problems reprioritized. Patient report given, questions answered & plan of care reviewed with Fina.
--- NOTE | 2018-12-10 18:43 | NUR ---
Patient in room PCU 3016. I have received report from Dariana HANSEN and had the opportunity to ask questions and assume patient care.
[2018-12-10 19:00] VITALS: BP 125/75
[2018-12-10] MEDS: traZODone 50mg tablet PO SCH (21:00)
--- NOTE | 2018-12-10 21:26 | NUR ---
Patient having some redness underneath all electrode pads so removed and skin cleaned and then new electrode pads for sensitive skin placed on patient.
[2018-12-10 23:00] VITALS: BP 115/59
[2018-12-11 02:00] VITALS: BP 126/75
[2018-12-11] MEDS: ipratropium/albuterol 3ml nebule NEB SCH ×3 (02:53→11:00)
[2018-12-11 05:51] LABS: BASOPHILS % (AUTO) 0.7 % (0-1); EOSINOPHILS # (AUTO) 0.1 X10'3 (0-0.9); EOSINOPHILS % (AUTO) 1.7 % (0-6); HEMATOCRIT 40.8 % (35.0-45.0); HEMOGLOBIN 13.6 g/dl (12.0-16.0); LYMPHOCYTES % (AUTO) 27.5 % (21-51); MEAN CORPUSCULAR HEMOGLOBIN 28.4 PG (27.0-31.0); MEAN CORPUSCULAR HGB CONC 33.2 g/dL (33.0-36.5); MEAN CORPUSCULAR VOLUME 85.4 FL (78-98); MONOCYTES # (AUTO) 0.4 X10'3 (0-0.9); MONOCYTES % (AUTO) 5.3 % (2-12); NEUTROPHILS # (AUTO) 4.6 X10'3 (1.8-7.7); NEUTROPHILS % (AUTO) 64.8 % (42-75); PLATELET COUNT 184 X10'3 (140-440); RED BLOOD COUNT 4.79 X10'6 (4.20-5.60); RED CELL DISTRIBUTION WIDTH 15.3 % (11.5-14.5); WHITE BLOOD COUNT 7.1 X10'3 (4.5-11.0)
[2018-12-11 06:00] VITALS: BP 148/94
[2018-12-11 06:02] LABS: ALBUMIN 3.4 G/DL (3.4-5.0); ANION GAP 12 (8-16); BLOOD UREA NITROGEN 18 MG/DL (7-18); CALCIUM 9.4 MG/DL (8.5-10.1); CHLORIDE 101 MMOL/L (99-107); CREATININE 0.75 MG/DL (0.40-0.90); GLUCOSE 112 MG/DL (70-104); MAGNESIUM 1.9 MG/DL (1.5-2.4); POTASSIUM 3.9 MMOL/L (3.5-5.1); SODIUM 138 MMOL/L (135-145); TOTAL CARBON DIOXIDE 25.4 MMOL/L (24-32); eGFR 76 ML/MIN
--- NOTE | 2018-12-11 06:24 | NUR ---
Patient in room PCU 3016. I have received report from Fina HANSEN and had the opportunity to ask questions and assume patient care.
--- NOTE | 2018-12-11 06:25 | NUR ---
Problems reprioritized. Patient report given, questions answered & plan of care reviewed with Adelita HANSEN.
[2018-12-11] MEDS: aspirin 81mg tablet.DR PO SCH (07:22)
[2018-12-11] MEDS: levoTHYROXINE 25mcg tablet PO SCH (07:22)
[2018-12-11] MEDS: isosorbide mononitrate 30mg tab.SR.24H PO SCH (07:22)
[2018-12-11] MEDS: pravastatin 40mg tablet PO SCH (07:22)
[2018-12-11] MEDS: gabapentin 300mg capsule PO SCH (07:22)
[2018-12-11] MEDS: clopidogrel 75mg tablet PO SCH (07:22)
[2018-12-11 07:23] VITALS: BP_SYST 146
[2018-12-11] MEDS: pantoprazole 40mg Tablet.DR PO SCH (07:23)
[2018-12-11] MEDS: fenofibrate 145mg tablet PO SCH (07:23)
[2018-12-11] MEDS: metoprolol tartrate 50mg tablet PO SCH (07:23)
[2018-12-11] MEDS: vitamin D (cholecalciferol) 1,000 unit tablet PO SCH (07:23)
[2018-12-11] MEDS: losartan 50mg tablet PO SCH (07:24)
[2018-12-11] MEDS: enoxaparin 40mg/0.4ml syringe SQ SCH (07:24)
[2018-12-11] MEDS: venlafaxine 25mg tablet PO SCH (07:24)
[2018-12-11] MEDS: folic acid 1mg tablet PO SCH (07:25)
[2018-12-11] MEDS: furosemide 40mg/4ml inj IV SCH (07:25)
[2018-12-11] MEDS: K and/or MAG REPLACEMENT MC SCH (07:35)
[2018-12-11] MEDS: budesonide 0.5mg/2ml UD nebule IH SCH (07:47)
[2018-12-11] MEDS ORDERED: FURO-149 PO (10:09)
--- NOTE | 2018-12-11 11:51 | NUR ---
Patient stable for discharge per md orders, discharge instructions reviewed w/ pt and all questions answered, new med prescription called in to [facility] per pt request, tele monitor 47 returned, PIV dc'ed and clean dry dressing in place secured with coban, pt's medication that was stored in pharmacy returned, pt wheeled down to lobby with hospital staff, pt discharges at 1130 with in private vehicle, all belongings w/ pt at time of discharge.
== END 2018-12-11 11:44 | disposition home or self-care (01) | DRG 280 ==
LOC: ER 07:40 → ED HOLD 09:41 → EDBEDREQ 09:55 → PCU 3S 10:58
PROVIDERS: ADMIT Hospitalist; ATTEND Internal Medicine
PROC: 5A09357 Assistance with Respiratory Ventilation, Less than 24 Consecutive Hours, Continuous Positive Airway Pressure (ICD-10-PCS; principal; 2018-12-08)
DX: I21.4 Non-ST elevation (NSTEMI) myocardial infarction (principal); J96.01 Acute respiratory failure with hypoxia; I50.23 Acute on chronic systolic (congestive) heart failure; E03.9 Hypothyroidism, unspecified; E78.5 Hyperlipidemia, unspecified; F32.9 Major depressive disorder, single episode, unspecified; F41.0 Panic disorder [episodic paroxysmal anxiety]; I08.1 Rheumatic disorders of both mitral and tricuspid valves; I11.0 Hypertensive heart disease with heart failure; I25.10 Atherosclerotic heart disease of native coronary artery without angina pectoris; I65.09 Occlusion and stenosis of unspecified vertebral artery; I71.4 Abdominal aortic aneurysm, without rupture; K21.9 Gastro-esophageal reflux disease without esophagitis; R73.03 Prediabetes; Z79.02 Long term (current) use of antithrombotics/antiplatelets; Z79.82 Long term (current) use of aspirin; Z79.899 Other long term (current) drug therapy; Z82.0 Family history of epilepsy and other diseases of the nervous system; Z86.79 Personal history of other diseases of the circulatory system; Z90.710 Acquired absence of both cervix and uterus; Z95.1 Presence of aortocoronary bypass graft; Z95.5 Presence of coronary angioplasty implant and graft; Z88.5 Allergy status to narcotic agent; Z88.2 Allergy status to sulfonamides; Z91.040 Latex allergy status; Z90.49 Acquired absence of other specified parts of digestive tract; Z87.891 Personal history of nicotine dependence
CPT/HCPCS: 36415; 36600; 71045; 80048; 80053; 82803; 82948; 83735; 83880; 84484; 85018; 85025; 85610; 85730; 87081; 93005; 94640; 94660; 94760; 96365; 96366; 96375; 97110; 97161; 97530; 99291; G0378; J1650; J1940; J3490; J7626

== ENCOUNTER 2019-02-15 13:18 | Emergency (ER) | payer MEDICARE ==
[~2019-02-15 13:18] MED LIST changes: +ALB0.5UD IH; +BUDE10.2 INH; -EFF25T PO; -HYDR-4353 PO; -POTA20TA19 PO; +VENL100T4 PO
[2019-02-15] MEDS ORDERED: LIDOcaine 1% W/epiNEPHrine 1:200,000 10ml vial IJ ONE (14:00)
--- NOTE | 2019-02-15 14:01 | NUR ---
to ct via josemanuel with ayala sanchez.
[2019-02-15] MEDS ORDERED: TETanus/Pertussis (Acell)/Diphther VAC/PF (Tdap-Adult) 0.5ml syringe IMVAC ONE (14:20)
--- NOTE | 2019-02-15 14:42 | NUR ---
1430 trauma called off
[2019-02-15 14:50] LABS: BASOPHILS # (AUTO) 0.1 X10'3 (0-0.2); EOSINOPHILS # (AUTO) 0.1 X10'3 (0-0.9); LYMPHOCYTES # (AUTO) 2.6 X10'3 (1.1-4.8); MONOCYTES # (AUTO) 0.5 X10'3 (0-0.9); MONOCYTES % (AUTO) 5.4 % (2-12); NEUTROPHILS # (AUTO) 5.4 X10'3 (1.8-7.7)
[2019-02-15 14:52] LABS: BASOPHILS % (AUTO) 0.9 % (0-1); EOSINOPHILS % (AUTO) 1.4 % (0-6); HEMATOCRIT 38.9 % (35.0-45.0); HEMOGLOBIN 13.1 g/dl (12.0-16.0); LYMPHOCYTES % (AUTO) 29.7 % (21-51); MEAN CORPUSCULAR HEMOGLOBIN 28.4 PG (27.0-31.0); MEAN CORPUSCULAR HGB CONC 33.7 g/dL (33.0-36.5); MEAN CORPUSCULAR VOLUME 84.2 FL (78-98); MEAN PLATELET VOLUME 7.9 FL (7.4-10.4); NEUTROPHILS % (AUTO) 62.6 % (42-75); PLATELET COUNT 228 X10'3 (140-440); RED BLOOD COUNT 4.62 X10'6 (4.20-5.60); RED CELL DISTRIBUTION WIDTH 15.1 % (11.5-14.5); WHITE BLOOD COUNT 8.6 X10'3 (4.5-11.0)
[2019-02-15 15:11] LABS: ALANINE AMINOTRANSFERASE 19 U/L (12-78); ALBUMIN 3.6 G/DL (3.4-5.0); ALBUMIN/GLOBULIN RATIO 1.1 (1.1-1.5); ALKALINE PHOSPHATASE 113 IU/L (46-116); ANION GAP 8 (8-16); ASPARTATE AMINO TRANSFERASE 12 U/L (10-37); BILIRUBIN,TOTAL 0.3 MG/DL (0.1-1.0); BLOOD UREA NITROGEN 15 MG/DL (7-18); BUN/CREATININE RATIO 16.1 (6.6-38.0); CALCIUM 8.7 MG/DL (8.5-10.1); CHLORIDE 102 MMOL/L (99-107); CREATININE 0.93 MG/DL (0.40-0.90); GLUCOSE 115 MG/DL (70-104); POTASSIUM 4.1 MMOL/L (3.5-5.1); SODIUM 137 MMOL/L (135-145); TOTAL CARBON DIOXIDE 26.7 MMOL/L (24-32); eGFR 59 ML/MIN
[2019-02-15] MEDS ORDERED: iohexol 350MG/ML 100ml bottle IV ONE (15:32)
--- NOTE | 2019-02-15 15:47 | NUR ---
back from ct scan in stable condition
[2019-02-15 16:23] VITALS: BP 106/64
== END 2019-02-15 16:34 | disposition home or self-care (01) ==
LOC: ER 13:19
DX: S01.81XA Laceration without foreign body of other part of head, initial encounter (principal); I72.8 Aneurysm of other specified arteries; I25.10 Atherosclerotic heart disease of native coronary artery without angina pectoris; I50.9 Heart failure, unspecified; Z98.61 Coronary angioplasty status; Z88.2 Allergy status to sulfonamides; Z91.040 Latex allergy status; Z88.5 Allergy status to narcotic agent; Z88.8 Allergy status to other drugs, medicaments and biological substances; Z79.82 Long term (current) use of aspirin; Z79.899 Other long term (current) drug therapy; W01.0XXA Fall on same level from slipping, tripping and stumbling without subsequent striking against object, initial encounter; Y93.89 Activity, other specified; Y92.89 Other specified places as the place of occurrence of the external cause; Y99.8 Other external cause status
CPT/HCPCS: 12013; 36415; 70450; 71275; 72125; 80053; 85025; 90471; 90715; 93005; 99284; Q9967

== ENCOUNTER 2019-07-13 12:44 | Emergency (ER) | payer MEDICARE ==
[~2019-07-13] VITALS: Ht 152.4 cm; Wt 74.8 kg
[2019-07-13] MEDS ORDERED: HYDROcodone/acetaminophen 5mg/325mg tablet PO ONE (12:55)
[2019-07-13 14:06] VITALS: BP 123/70
[2019-07-13] MEDS ORDERED: HYDR-3965 PO (14:06)
== END 2019-07-13 14:23 | disposition home or self-care (01) ==
LOC: ER 12:45
DX: S22.42XA Multiple fractures of ribs, left side, initial encounter for closed fracture (principal); S00.03XA Contusion of scalp, initial encounter; R06.02 Shortness of breath; R07.81 Pleurodynia; M54.89 Other dorsalgia; W18.39XA Other fall on same level, initial encounter; W22.09XA Striking against other stationary object, initial encounter; X36.1XXA Avalanche, landslide, or mudslide, initial encounter; Y93.89 Activity, other specified; Y92.89 Other specified places as the place of occurrence of the external cause; I25.10 Atherosclerotic heart disease of native coronary artery without angina pectoris; I50.9 Heart failure, unspecified; Z98.890 Other specified postprocedural states; Z88.5 Allergy status to narcotic agent; Z88.2 Allergy status to sulfonamides; Z88.8 Allergy status to other drugs, medicaments and biological substances; Z91.040 Latex allergy status; Z79.2 Long term (current) use of antibiotics; Z79.899 Other long term (current) drug therapy
CPT/HCPCS: 70450; 71250; 72125; 74176; 99285

== ENCOUNTER 2023-09-16 16:49 | Emergency (ER) | payer MEDICARE, OTHER ==
[~2023-09-16] VITALS: Ht 167.6 cm; Wt 68.2 kg
[~2023-09-16 16:49] MED LIST changes: +ACYC-129 PO; -ACYC-202 PO; -FOLI1TAB16 PO; +FOLI1TAB27 PO; -ISOS30TA6 PO; +ISOS30TA84 PO
[2023-09-16 17:09] VITALS: TEMP 97.9
[2023-09-16 17:13] LABS: BASOPHILS # (AUTO) 0.1 X10'3 (0-0.2); BASOPHILS % (AUTO) 0.9 % (0-1); EOSINOPHILS # (AUTO) 0.1 X10'3 (0-0.9); EOSINOPHILS % (AUTO) 1.3 % (0-6); HEMATOCRIT 44.9 % (35.0-45.0); HEMOGLOBIN 14.8 g/dl (12.0-16.0); LYMPHOCYTES # (AUTO) 1.8 X10'3 (1.1-4.8); LYMPHOCYTES % (AUTO) 19.7 % (21-51); MEAN CORPUSCULAR HEMOGLOBIN 28.7 PG (27.0-31.0); MEAN CORPUSCULAR HGB CONC 32.9 g/dL (33.0-36.5); MEAN CORPUSCULAR VOLUME 87.3 FL (78-98); MONOCYTES # (AUTO) 0.4 X10'3 (0-0.9); MONOCYTES % (AUTO) 4.3 % (2-12); NEUTROPHILS # (AUTO) 6.9 X10'3 (1.8-7.7); NEUTROPHILS % (AUTO) 73.8 % (42-75); PLATELET COUNT 186 X10'3 (140-440); RED BLOOD COUNT 5.14 X10'6 (4.20-5.60); RED CELL DISTRIBUTION WIDTH 14.2 % (11.5-14.5); WHITE BLOOD COUNT 9.4 X10'3 (4.5-11.0)
[2023-09-16 17:37] LABS: ANION GAP 11 (8-16); BLOOD UREA NITROGEN 17 MG/DL (7-18); BUN/CREATININE RATIO 14.9 (10.0-20.0); CALCIUM 9.6 MG/DL (8.5-10.1); CHLORIDE 97 MMOL/L (99-107); CREATININE 1.14 MG/DL (0.40-0.90); GLUCOSE 109 MG/DL (70-104); PRO BRAIN NATRIURETIC PEPTIDE 818 PG/ML (0-450); SODIUM 134 MMOL/L (135-145); TOTAL CARBON DIOXIDE 26.2 MMOL/L (24-32); eCRCL 39 ML/MIN; eGFR 46 ML/MIN
[2023-09-16 17:40] LABS: POTASSIUM 2.9 MMOL/L (3.5-5.1)
[2023-09-16 18:07] VITALS: BP 129/87; PULSE 70; RESP 16
[2023-09-16 18:08] VITALS: O2SAT 97
[2023-09-16 18:32] LABS: APTT 29 SECONDS (22-32); PROTHROMBIN TIME 10.6 SECONDS (9.0-12.0)
[2023-09-16 18:36] LABS: ALANINE AMINOTRANSFERASE 76 U/L (12-78); ALBUMIN/GLOBULIN RATIO 1.2 (1.1-1.5); ALKALINE PHOSPHATASE 143 IU/L (46-116); ASPARTATE AMINO TRANSFERASE 55 U/L (10-37); BILIRUBIN,DIRECT 0.2 MG/DL (0-0.3); BILIRUBIN,TOTAL 0.9 MG/DL (0.1-1.0); ETHANOL < 10 MG/DL (<10); MAGNESIUM 1.6 MG/DL (1.5-2.4); TOTAL PROTEIN 7.4 G/DL (6.4-8.2)
== END 2023-09-16 19:06 | disposition left against medical advice (07) ==
LOC: ER 16:50
DX: R55 Syncope and collapse (principal); E87.6 Hypokalemia; Z88.2 Allergy status to sulfonamides; Z88.5 Allergy status to narcotic agent; Z91.040 Latex allergy status; Z79.899 Other long term (current) drug therapy
CPT/HCPCS: 36415; 71045; 80048; 80076; 83735; 83880; 84484; 85025; 85610; 85730; 93005; 99283; G0480; 80320; 99285